=== PATIENT | female | born 1975 | race Caucasian/White ===

== ENCOUNTER 2024-08-07 16:51 | Emergency (ER) | payer BC, SELFPAY ==
[2024-08-07 17:04] VITALS: BP 137/83; PULSE 110; RESP 20; TEMP 37.2; O2SAT 99; BMI 24.3
--- NOTE | 2024-08-07 17:09 | PC.NURSE ---
Pt swabbed and sent to lab
[2024-08-07 17:14] LABS: Influenza A, PCR Not Detected (NotDetected); Influenza B, PCR Not Detected (NotDetected)
[2024-08-07 18:08] LABS: Coronavirus 19, PCR Detected (NotDetected)
--- NOTE | 2024-08-07 18:12 | ED_ITS ---
Discharge Plan Disposition Patient Disposition: Home, Self-Care Referrals Follow up/Referrals: Donovan Alatorre [Primary Care Provider] - See instructions Activity Restrictions/Add. Instructions Additional Instructions/Restrictions: Call your family doctor to establish care for this visit to the emergency department and schedule follow-up within 48 hours to ensure improvement. If you have any worsening of your condition or any other concerning signs or symptoms, return to the emergency department or your primary care doctor for further evaluation. Take Tylenol 1000 mg every 6 hours (4 times daily) and ibuprofen 400 mg every 6 hours (4 times daily) as needed with food and water to prevent GI upset and kidney damage. Clinical Impressions Clinical Impression: Acute COVID-19 Print Language Print Language: French Discharge ED Provider: Michael Schneider General Adult HPI General Chief complaint: Upper Respiratory Infection Stated complaint: [place],Cough,fever,body aches Time Seen by Provider: 08/07/24 18:12 Mode of Arrival: Ambulatory Source of Information: Patient Limitations: No Limitations Description of Symptoms (Recalled from ER Triage Doc. by RN): pt to ed c/o fever, body aches, headache and sore throat. pt reports to having COVID exposure. History of Present Illness HPI narrative: Please note that above description of symptoms, in this electronic medical record under categorization of recalled from ER triage doctor by RN are reflective of an initial nursing assessment, however, is not reflective of my full history and physical exam that was personally taken and clarified. Consequentially, this preceding description of symptoms, which may include the patient's categorized chief complaint in the EMR, do not reflect my personal clinical impression, and the ultimate description of history of present illness and patient stated complaints should be deferred to this section of the note. Unless stated otherwise or congruent with this section of the note, additional signs, symptoms, or incongruence should be interpreted as inaccurate with my clinical impression. Related Data Allergies Allergy/AdvReac Type Severity Reaction Status Date / Time ampicillin Allergy Rash Verified 08/07/24 17:07 [facility] Disclaimer: The information contained in this section may have been updated after the patient was seen, as this information can be updated by other users. Social History Smoking Status: Current every day smoker alcohol intake: never current occupational status: employed Travel in the last 8 weeks: None ROS Obtained: Yes All systems reviewed & no additional complaints except as documented Physical Exam General General appearance: alert Head Head exam: atraumatic and normocephalic Eye Eye exam: Present normal appearance, PERRL and EOMI Neck Neck exam: Present normal inspection, full ROM and trachea midline Respiratory Respiratory exam: Absent respiratory distress, wheezes, stridor, accessory muscle use or prolonged expiratory phase Cardiovascular Cardiovascular exam: Present other (Pulses equal symmetric in upper and lower extremities) Abdominal Exam Abdominal exam: Present soft; Absent distention, tenderness or pulsatile mass Extremities Exam Extremities exam: Absent edema Neurological Exam Neurological exam: Present alert, oriented X3 and CN II-XII intact; Absent motor sensory deficit Skin Skin exam: Present warm and dry; Absent diaphoresis or erythema Medical Decision Making Medical Records Medical records reviewed: Yes I reviewed the patient's medical records. Screening: Per USPSTF and CDC recommendations, given the prevalence of disease in our region, it is our hospital?s policy to screen for HIV and viral Hepatitis for all patients aged 18 and over and those with ongoing risk factors. Jelani Inquiry Pt receiving controlled substance: No Jelani was queried for this patient: No Vital Signs: 08/07/24 17:04 Temperature 98.9 F Temperature Source Oral Pulse Rate [Left Radial] 110 H Respiratory Rate 20 Blood Pressure [Right Arm] 137/83 Blood Pressure Mean [Right Arm] 101 02 Sat by Pulse Oximetry 99 Oxygen Delivery Method Room Air Lab Data Lab Results 08/07/24 17:08: SARS-CoV-2 (PCR) Detected A, Influenza A Untype (PCR) Not detected, Influenza Type B (PCR) Not detected Orders (Tests/Meds): ORDERS Category Date Time Status Rapid PCR Covid and Flu A/B Stat Lab 08/07/24 17:08 Completed Medical Decision Narrative: 49-year-old female presenting with headache, cough, fever, body aches. She works at an assisted living facility and states that she started having viral symptoms yesterday. Also having rhinorrhea, coughing up lots of mucus having trouble sleeping at night because she is coughing. When she is coughing producing clear sputum. Otherwise no acute complaints. No other medical problems that are relevant. History obtained the patient. On arrival, she is very well-appearing. In no acute distress speaking in full sentences, cardiopulmonary exam normal. Initial workup to be conservative with COVID swab. COVID-positive, flu negative. Guidance was given regarding home-going. Recommended taking antihistamine and Sudafed PE at night to help with cough. She voiced her understanding. Because patient at baseline without signs or symptoms of clinical decompensation, deemed appropriate for discharge. Results were relayed to patient who voiced understanding and were agreeable to outpatient management and follow up. I discussed my clinical impression with patient and answered all questions. At this time, the evidence for any other entities in the differential is insufficient to warrant any further testing or ED observation. This was explained as well. Advisory was given that persistent or worsening symptoms require further evaluation. I confirmed the understanding of this discussion. [employer] disclaimer Much of this encounter note is an electronic assistant plant controller spoken language to printed text. Electronic assistant plant controller of the spoken language may permit errors. Although I have reviewed the note, some errors may still exist. Critical Care Critical Care Time Critical Care Time: No
[2024-08-07 18:22] VITALS: BP 140/79; PULSE 70; RESP 20; TEMP 37.3; O2SAT 98
== END 2024-08-07 18:25 | disposition home or self-care (01) ==
LOC: ER 18:26
PROVIDERS: Emergency Provider Emergency Medicine; PCP Internal Medicine
DX: U07.1 COVID-19 (principal); R50.9 Fever, unspecified; M79.10 Myalgia, unspecified site; R51.9 Headache, unspecified; J02.9 Acute pharyngitis, unspecified
CPT/HCPCS: 87636; 99283